=== PATIENT | female | born 1990 | race American Indian/Alaskan Native ===

== ENCOUNTER 2017-02-15 20:09 | Emergency (ER) | payer SELFPAY ==
[2017-02-15 23:05] LABS: Bacteria,Urine 1+ /HPF (Negative); Bilirubin,Urine NEG (Negative); Blood,Urine MOD (Negative); Ketones,Urine NEG (Negative); Leukocyte Esterase,Urine MOD (Negative); Mucus,Urine FEW /HPF; Nitrite,Urine NEG (Negative); Urobilinogen,Urine < 2.0 mg/dL (<2.0)
--- NOTE | 2017-02-16 01:15 | Emergency Department Report ---
ED Female HPI - General Chief complaint: Urogenital-Female Stated complaint: BLOOD IN URINE Time Seen by Provider: 02/16/17 01:14 Source: patient Mode of arrival: Ambulatory Limitations: No Limitations - History of Present Illness Initial comments: Pt is a healthy 26 yr old female with no PMHx who presents to the ED with hematuria and increased urinary frequency for the past few days. Pt reports these are her usualy symptoms of UTI. Pt has been drinking water and taking cranberry supplements without relief. Otherwise no fevers, chills, WELDON, NVD, SOB , CP, abd pain, back pain, pelvic pain, pelvic discharge, h/o STD, travel, or sick contacts - Related Data Previous Rx's Medication Instructions Recorded Last Taken Type Cefdinir 300 mg PO BID #14 capsule 02/16/17 Unknown Rx Allergies Allergy/AdvReac Type Severity Reaction Status Date / Time No Known Allergies Allergy Verified 02/15/17 21:34 ED Review of Systems ROS: Stated complaint: BLOOD IN URINE Other details as noted in HPI Comment: All other systems reviewed and negative ED Past Medical Hx - Past Medical History Previous Medical History?: No - Surgical History Past Surgical History?: No - Social History Smoking Status: Current Every Day Smoker Substance Use Type: None - Medications Home Medications: Home Medications Medication Instructions Recorded Confirmed Last Taken Type Cefdinir 300 mg PO BID #14 capsule 02/16/17 Unknown Rx ED Physical Exam - General Limitations: No Limitations General appearance: alert, in no apparent distress - Head Head exam: Present: atraumatic, normocephalic - Eye Eye exam: Present: normal appearance - ENT ENT exam: Present: mucous membranes moist - Neck Neck exam: Present: normal inspection - Respiratory Respiratory exam: Present: normal lung sounds bilaterally. Absent: respiratory distress - Cardiovascular Cardiovascular Exam: Present: regular rate, normal rhythm. Absent: systolic murmur, diastolic murmur, rubs, gallop - GI/Abdominal GI/Abdominal exam: Present: soft, normal bowel sounds - Extremities Exam Extremities exam: Present: normal inspection - Back Exam Back exam: Present: normal inspection - Neurological Exam Neurological exam: Present: alert, oriented X3 - Psychiatric Psychiatric exam: Present: normal affect, normal mood - Skin Skin exam: Present: warm, dry, intact, normal color. Absent: rash ED Course Vital Signs 02/15/17 02/16/17 21:34 01:24 Temperature 98.4 F Pulse Rate 70 Respiratory 18 14 Rate Blood Pressure 117/79 O2 Sat by Pulse 100 99 Oximetry Critical care attestation.: If time is entered above; I have spent that time in minutes in the direct care of this critically ill patient, excluding procedure time. ED Disposition Clinical Impression: UTI (urinary tract infection) Disposition: DC-01 TO HOME OR SELFCARE Is pt being admited?: No Condition: Stable Instructions: Urinary Tract Infection in Women (ED) Prescriptions: Cefdinir 300 mg PO BID #14 capsule Referrals: PRIMARY CARE, [Primary Care Provider] - 3-5 Days
[2017-02-16 01:58] VITALS: BP 121/84
== END 2017-02-16 01:58 | disposition home or self-care (01) ==
LOC: ED 20:09
DX: N39.0 Urinary tract infection, site not specified (principal); F17.200 Nicotine dependence, unspecified, uncomplicated
CPT/HCPCS: 81001; 81025; 99283

== ENCOUNTER 2018-01-15 17:05 | Emergency (ER) | payer SELFPAY ==
[2018-01-15 18:21] LABS: Basophils # (Auto) 0.1 K/mm3 (0.0-0.1); Basophils % (Auto) 0.9 % (0.0-1.8); Eosinophils # (Auto) 0.5 K/mm3 (0.0-0.4); Eosinophils % (Auto) 4.2 % (0.0-4.3); Hematocrit 43.4 % (30.3-42.9); Hemoglobin 14.5 gm/dl (10.1-14.3); Lymphocytes # (Auto) 3.4 K/mm3 (1.2-5.4); Lymphocytes % (Auto) 29.7 % (13.4-35.0); Mean Corpuscular HGB Conc 33 % (30-34); Mean Corpuscular Hemoglobin 30 pg (28-32); Mean Corpuscular Volume 90 fl (79-97); Monocytes # (Auto) 0.8 K/mm3 (0.0-0.8); Monocytes % (Auto) 7.4 % (0.0-7.3); Platelet Count 228 K/mm3 (140-440); Red Blood Count 4.85 M/mm3 (3.65-5.03); Red Cell Distribution Width 12.6 % (13.2-15.2)
[2018-01-15 18:44] LABS: Bilirubin,Urine NEG (Negative); Blood,Urine LG (Negative); Calcium Oxalate Crystals,Urine 1+; Color,Urine Amber (Yellow); Mucus,Urine 3+ /HPF; Urobilinogen,Urine < 2.0 mg/dL (<2.0)
[2018-01-15 18:45] LABS: RBC,Urine > 182.0 /HPF (0.0-6.0)
--- NOTE | 2018-01-15 22:43 | Ultrasound Report ---
FINAL REPORT PROCEDURE: US OB TRANSVAGINAL and transabdominal TECHNIQUE: Real-time transabdominal and transvaginal sonography of the uterus, placenta, amniotic fluid, adnexa, and fetus was performed with image documentation. Measurements were obtained to determine age/size. M-mode Doppler was used to document heartbeat. CPT 70615 and 30193 HISTORY: vaginal bleed COMPARISON: No prior studies are available for comparison. FINDINGS: Uterus measures 10.1 x 5.0 x 5.0 centimeters. Endometrium measures 11.5 centimeters in thickness. There is a complex cystic area noted in the lower uterine segment/cervix, measuring up to 1.2 centimeters. Cervix: Normal. Right Ovary: 2.9 x 1.9 x 2.5 centimeters. There is a 1.5 centimeter cyst Left Ovary: 2.8 x 1.9 x 2.0 centimeters No free fluid is seen IMPRESSION: There is an indeterminate 1.2 centimeter complex cystic structure in the lower uterine segment/endocervical canal. This is of uncertain etiology, but gestational sac cannot be excluded. Recommend clinical and sonographic follow-up. Cannot fully exclude ectopic based on these images. Again, recommend follow-up.
--- NOTE | 2018-01-15 22:43 | Ultrasound Report ---
FINAL REPORT PROCEDURE: US OB TRANSVAGINAL and transabdominal TECHNIQUE: Real-time transabdominal and transvaginal sonography of the uterus, placenta, amniotic fluid, adnexa, and fetus was performed with image documentation. Measurements were obtained to determine age/size. M-mode Doppler was used to document heartbeat. CPT 45945 and 69263 HISTORY: vaginal bleed COMPARISON: No prior studies are available for comparison. FINDINGS: Uterus measures 10.1 x 5.0 x 5.0 centimeters. Endometrium measures 11.5 centimeters in thickness. There is a complex cystic area noted in the lower uterine segment/cervix, measuring up to 1.2 centimeters. Cervix: Normal. Right Ovary: 2.9 x 1.9 x 2.5 centimeters. There is a 1.5 centimeter cyst Left Ovary: 2.8 x 1.9 x 2.0 centimeters No free fluid is seen IMPRESSION: There is an indeterminate 1.2 centimeter complex cystic structure in the lower uterine segment/endocervical canal. This is of uncertain etiology, but gestational sac cannot be excluded. Recommend clinical and sonographic follow-up. Cannot fully exclude ectopic based on these images. Again, recommend follow-up. PROCEDURE: TECHNIQUE: HISTORY: COMPARISON: FINDINGS: IMPRESSION:
--- NOTE | 2018-01-16 00:33 | Emergency Department Report ---
HPI - General Chief Complaint: Vaginal Bleeding Time Seen by Provider: 01/16/18 00:18 - HPI HPI: 27-year-old female presents to the emergency department with concern that she may have had a miscarriage. The patient did not take any tests but says that she was about 6 weeks late from having a menstrual cycle. Starting yesterday and last night the patient had very heavy vaginal bleeding "as if someone turned on a faucet." This was associated with very bad pelvic cramping. The bleeding has improved greatly but she still has some cramping. She denies any dysuria, vaginal discharge, fever, nausea or vomiting. With this she would be . She has not taken anything for her symptoms prior to presentation. She does not have an [facility]. ED Past Medical Hx - Past Medical History Previous Medical History?: No - Surgical History Past Surgical History?: No - Social History Smoking Status: Current Every Day Smoker Substance Use Type: Alcohol - Medications Home Medications: Home Medications Medication Instructions Recorded Confirmed Last Taken Type Cefdinir 300 mg PO BID #14 capsule 02/16/17 Unknown Rx Nitrofurantoin Monohyd/M-Cryst 100 mg PO BID #14 capsule 01/16/18 Unknown Rx [Macrobid 100 mg Capsule] Vit Calc,Iron,Folic 1 each PO QDAY #30 tablet 01/16/18 Unknown Rx [ Vitamins] ED Review of Systems ROS: Stated complaint: POSSIBLE MISCARRIAGE Other details as noted in HPI Comment: All other systems reviewed and negative Constitutional: denies: chills, fever Eyes: denies: eye pain, eye discharge, vision change ENT: denies: ear pain, throat pain Respiratory: denies: cough, shortness of breath, wheezing Cardiovascular: denies: chest pain, palpitations Gastrointestinal: denies: nausea, vomiting Genitourinary: other (vaginal bleeding, pelvic cramping). denies: dysuria, discharge Musculoskeletal: denies: back pain, joint swelling, arthralgia Skin: denies: rash, lesions Neurological: denies: headache, weakness, paresthesias Physical Exam - Physical Exam Vital Signs: Vital Signs 01/15/18 17:09 Temperature 98.5 F Pulse Rate 90 Respiratory 18 Rate Blood Pressure 131/74 O2 Sat by Pulse 98 Oximetry Physical Exam: GENERAL: The patient is well-developed well-nourished. HENT: Normocephalic. Atraumatic. Patient has moist mucous membranes. EYES: Extraocular motions are intact. Pupils equal reactive to light bilaterally. NECK: Supple. Trachea is midline. CHEST/LUNGS: Clear to auscultation. There is no respiratory distress noted. HEART/CARDIOVASCULAR: Regular. There is no tachycardia. There is no murmur. ABDOMEN: Abdomen is soft, nontender. Patient has normal bowel sounds. There is no abdominal distention. SKIN: Skin is warm and dry. NEURO: The patient is awake, alert, and oriented. The patient is cooperative. The patient has no focal neurologic deficits. The patient has normal speech. MUSCULOSKELETAL: There is no tenderness or deformity. There is no limitation range of motion. There is no evidence of acute injury. ED Course Vital Signs 01/15/18 17:09 Temperature 98.5 F Pulse Rate 90 Respiratory 18 Rate Blood Pressure 131/74 O2 Sat by Pulse 98 Oximetry - Pulse Oximetry Interpretation Digit-Finger Initial Pulse Oximetry Readin O2 Sat by Pulse Oximetry: 98 Actions Taken: none Additional Comments: Normal ED Medical Decision Making - Lab Data Result diagrams: 01/15/18 17:48 - Radiology Data Radiology results: report reviewed Transvaginal/OB ultrasound shows an indeterminate 1.2 cm complex cystic structure in the lower uterine segment/endocervical canal. This is of uncertain etiology but gestational sac cannot be excluded. - Medical Decision Making This patient is about 6 weeks late from her menstrual cycle and now presents with some recent heavy vaginal bleeding and pelvic cramping with concern for miscarriage. Her beta hCG today is about 1200. Vital signs stable. She has a stable hemoglobin. The ultrasound shows a indeterminate 1.2 cm cystic structure in the lower uterine/endocervical region. This very well could represent a miscarriage, however a early and early gestational sac cannot be excluded at this time. For this reason, the patient will return to the emergency department or an [facility] services in 2-3 days for a repeat hormone level. If the hormone level is increasing, the patient will have a repeat ultrasound. If decreasing, this most likely was a miscarriage. In the meantime the patient will be placed on vitamins. She also has a very mild urinary tract infection with 12 WBCs and trace leukocyte Estrace and was prescribed an antibiotic. All this was discussed with the patient and her significant other and she will return to the ER with any worsening of her symptoms or any acute distress. - Differential Diagnosis , threatened miscarriage, spontaneous miscarriage, fibroids Critical Care Time: No Critical care attestation.: If time is entered above; I have spent that time in minutes in the direct care of this critically ill patient, excluding procedure time. ED Disposition Clinical Impression: Threatened miscarriage UTI (urinary tract infection) Qualifiers: Urinary tract infection type: acute cystitis Hematuria presence: with hematuria Qualified Code(s): N30.01 - Acute cystitis with hematuria Disposition: TO HOME OR SELFCARE Is pt being admited?: No Condition: Stable Instructions: Threatened Miscarriage (ED) Additional Instructions: Please return to the emergency department, or an [facility], in 2-3 days for a repeat hormone level called a beta hCG. If this hormone level is increasing, then you may get a repeat ultrasound to see if there is any development of within the uterus. If this hormone level is decreasing , then you most likely had a miscarriage. In the meantime, I have started you on vitamins. Return to the emergency Department sooner with any worsening of her symptoms, increased vaginal bleeding, or with any acute distress. Prescriptions: Nitrofurantoin Monohyd/M-Cryst [Macrobid 100 mg Capsule] 100 mg PO BID #14 capsule Vit Calc,Iron,Folic [ Vitamins] 1 each PO QDAY #30 tablet Referrals: [facility] [Provider Group] - 2-3 Days [facility] [Provider Group] - 2-3 Days [facility] [Provider Group] - 2-3 Days Time of Disposition: 00:33
[2018-01-16 00:44] VITALS: BP 126/84
== END 2018-01-16 01:01 | disposition home or self-care (01) ==
LOC: ED 17:05
DX: O23.41 Unspecified infection of urinary tract in pregnancy, first trimester (principal); O20.0 Threatened abortion; F17.200 Nicotine dependence, unspecified, uncomplicated; Z3A.01 Less than 8 weeks gestation of pregnancy
CPT/HCPCS: 36415; 76801; 76817; 81001; 84702; 85025; 86850; 86900; 86901; 99284

== ENCOUNTER 2019-01-31 23:59 | Emergency (ER) | payer MEDICAID, OTHER ==
[2019-02-01 01:27] LABS: Bilirubin,Urine NEG (Negative); Blood,Urine NEG (Negative); Color,Urine Yellow (Yellow); HCG Qualitative,Urine Positive (Negative); Mucus,Urine 1+ /HPF; Protein,Urine <15 mg/dL mg/dL (Negative)
--- NOTE | 2019-02-01 03:48 | Ultrasound Report ---
PROCEDURE: US OB <= 14 WEEKS FETUS TECHNIQUE: Real-time transabdominal sonography of the uterus, placenta, amniotic fluid, adnexa, and fetus was performed with image documentation. Measurements were obtained to determine age/size. M-mode Doppler was used to document heartbeat. ADDITIONAL GESTATION: None. HISTORY: preg with abd pain/bleeding COMPARISONS: None . FINDINGS: No evidence of intrauterine gestation is identified. Endometrium is thickened at 21 mm. There is no e ndometrial fluid. The ovaries are unremarkable. There is no free fluid. IMPRESSION: No evidence of intrauterine gestation is identified. Endometrium is thickened at 21 mm. There is no e ndometrial fluid. The ovaries are unremarkable. There is no free fluid. This document is electronically signed by Stone Lucas MD., February 01 2019 03:45:52 AM ET
--- NOTE | 2019-02-01 04:11 | Emergency Department Report ---
ED Female HPI - General Chief complaint: Vaginal Bleeding Stated complaint: /SPOTTING Time Seen by Provider: 02/01/19 01:50 Source: patient Mode of arrival: Ambulatory Limitations: No Limitations - History of Present Illness Initial comments: Patient is a 28-year-old female whose last menstrual period was 12/27/2018 who is presented with some very mild vaginal spotting. Patient took a test earlier today which was positive. The patient wiped last time she went to the bathroom she's noted that there was pink tinge to her urine. Patient is denying any abdominal pain at this time. - Related Data Previous Rx's Medication Instructions Recorded Last Taken Type Cefdinir 300 mg PO BID #14 capsule 02/16/17 Unknown Rx Nitrofurantoin Monohyd/M-Cryst 100 mg PO BID #14 capsule 01/16/18 Unknown Rx [Macrobid 100 mg Capsule] Vit Calc,Iron,Folic 1 each PO QDAY #30 tablet 01/16/18 Unknown Rx [ Vitamins] Allergies Allergy/AdvReac Type Severity Reaction Status Date / Time No Known Allergies Allergy Verified 01/15/18 17:09 ED Review of Systems ROS: Stated complaint: /SPOTTING Other details as noted in HPI Comment: All other systems reviewed and negative ED Past Medical Hx - Past Medical History Previous Medical History?: No - Surgical History Past Surgical History?: No - Social History Smoking Status: Current Every Day Smoker Substance Use Type: None - Medications Home Medications: Home Medications Medication Instructions Recorded Confirmed Last Taken Type Cefdinir 300 mg PO BID #14 capsule 02/16/17 Unknown Rx Nitrofurantoin Monohyd/M-Cryst 100 mg PO BID #14 capsule 01/16/18 Unknown Rx [Macrobid 100 mg Capsule] Vit Calc,Iron,Folic 1 each PO QDAY #30 tablet 01/16/18 Unknown Rx [ Vitamins] ED Physical Exam - General Limitations: No Limitations General appearance: alert, in no apparent distress - Head Head exam: Present: atraumatic, normocephalic - Eye Eye exam: Present: normal appearance - ENT ENT exam: Present: mucous membranes moist - Neck Neck exam: Present: normal inspection - Respiratory Respiratory exam: Present: normal lung sounds bilaterally. Absent: respiratory distress, wheezes, rales - Cardiovascular Cardiovascular Exam: Present: regular rate, normal rhythm. Absent: systolic murmur, diastolic murmur, rubs, gallop - GI/Abdominal GI/Abdominal exam: Present: soft, normal bowel sounds. Absent: distended, tenderness, guarding, rebound - Extremities Exam Extremities exam: Present: normal inspection - Back Exam Back exam: Present: normal inspection - Neurological Exam Neurological exam: Present: alert, oriented X3 - Psychiatric Psychiatric exam: Present: normal affect, normal mood - Skin Skin exam: Present: warm, dry, intact, normal color. Absent: rash ED Course Vital Signs 02/01/19 00:29 Temperature 97.8 F Pulse Rate 87 Respiratory 18 Rate Blood Pressure 120/70 [Right] O2 Sat by Pulse 98 Oximetry ED Medical Decision Making - Lab Data Lab Results 02/01/19 02/01/19 Range/Units 01:10 03:26 HCG, Quant 95.45 H (0-4) mIU/mL Urine Color Yellow (Yellow) Urine Turbidity Slightly-cloudy (Clear) Urine pH 5.0 (5.0-7.0) Ur Specific [place] 1.029 (1.003-1.030) Urine Protein <15 mg/dl (Negative) mg/dL Urine Glucose (UA) Neg (Negative) mg/dL Urine Ketones Tr (Negative) mg/dL Urine Blood Neg (Negative) Urine Nitrite Neg (Negative) Urine Bilirubin Neg (Negative) Urine Urobilinogen 2.0 (<2.0) mg/dL Ur Leukocyte Esterase Neg (Negative) Urine WBC (Auto) 2.0 (0.0-6.0) /HPF Urine RBC (Auto) 2.0 (0.0-6.0) /HPF U Epithel Cells (Auto) 4.0 (0-13.0) /HPF Urine Mucus 1+ /HPF Urine HCG, Qual Positive A (Negative) - Medical Decision Making Patient is a 28-year-old [place] female who states that she has some pink tinged spotting and just found out she was . Quantitative and ultrasound are consistent with very early . Patient will be discharged home with follow-up in 1-2 weeks. Critical care attestation.: If time is entered above; I have spent that time in minutes in the direct care of this critically ill patient, excluding procedure time. ED Disposition Clinical Impression: First trimester bleeding Qualifiers: Weeks of gestation: less than 8 weeks Qualified Code(s): Z3A.01 - Less than 8 weeks gestation of Disposition: DC-01 TO HOME OR SELFCARE Is pt being admited?: No Does the pt Need Aspirin: No Condition: Stable Instructions: (ED) Referrals: MAKI LAI MD [Staff Physician] - 3-5 Days Time of Disposition: 04:10
[2019-02-01 04:26] VITALS: BP 126/87
--- NOTE | 2019-02-01 04:34 | Ultrasound Report ---
PROCEDURE: US OB TRANSVAGINAL TECHNIQUE: Real-time transvaginal sonography of the uterus, placenta, amniotic fluid, adnexa, and fe tus was performed with image documentation. Measurements were obtained to determine age/size. M -mode Doppler was used to document heartbeat. ADDITIONAL GESTATION: None. HISTORY: preg with abd pain/bleeding COMPARISONS: None . FINDINGS: No evidence of intrauterine gestation is identified. Endometrium is thickened at 21 mm. There is no e ndometrial fluid. The ovaries are unremarkable. There is no free fluid. IMPRESSION: No evidence of intrauterine gestation is identified. Endometrium is thickened at 21 mm. There is no e ndometrial fluid. The ovaries are unremarkable. There is no free fluid. This document is electronically signed by Stone Lucas MD., February 01 2019 04:32:22 AM ET
== END 2019-02-01 04:26 | disposition home or self-care (01) ==
LOC: ED 23:59
DX: O20.8 Other hemorrhage in early pregnancy (principal); Z3A.01 Less than 8 weeks gestation of pregnancy; Z79.899 Other long term (current) drug therapy
CPT/HCPCS: 36415; 76801; 76817; 81001; 81025; 84702; 86900; 86901

== ENCOUNTER 2019-02-08 12:29 | Emergency (ER) | payer MEDICAID, OTHER ==
[2019-02-08 12:39] VITALS: BP 114/66
--- NOTE | 2019-02-08 12:42 | Emergency Department Report ---
Blank Doc - Documentation Documentation: 28 y/o female reports to ED and is 6 weeks c/o of vaginal bleeding. c/o of visual changes, fatigue and aches. Does not want a blood transfusion if that is what the test show that she needs. Plan Labs, urine, US
--- NOTE | 2019-02-08 13:32 | Emergency Department Report ---
ED HPI - General Chief complaint: Vaginal Bleeding Stated complaint: /VAGINAL BLEEDING Time Seen by Provider: 02/08/19 12:37 Source: patient Mode of arrival: Ambulatory Limitations: No Limitations - History of Present Illness Initial comments: Patient is a 28-year-old female who presents the emergency room with complaints of vaginal bleeding that began yesterday. She states she saw bright red blood when she wiped yesterday. She states now she is just only having spotting. She denies any abdominal pain. She denies any urinary symptoms, vaginal discharge. She states she has her first appointment with her COMPENSATION AND BENEFITS ANALYST on March 10. She states she is currently 6 weeks . Her last normal menstrual period was December 27. She denies any past medical history. No allergies medications. She states she is taking a daily vitamin. /P:0/A:1 - Related Data Previous Rx's Medication Instructions Recorded Last Taken Type Cefdinir 300 mg PO BID #14 capsule 02/16/17 Unknown Rx Nitrofurantoin Monohyd/M-Cryst 100 mg PO BID #14 capsule 01/16/18 Unknown Rx [Macrobid 100 mg Capsule] Vit Calc,Iron,Folic 1 each PO QDAY #30 tablet 01/16/18 Unknown Rx [ Vitamins] Allergies Allergy/AdvReac Type Severity Reaction Status Date / Time No Known Allergies Allergy Verified 02/08/19 12:30 ED Review of Systems ROS: Stated complaint: /VAGINAL BLEEDING Other details as noted in HPI Comment: All other systems reviewed and negative ED Past Medical Hx - Past Medical History Previous Medical History?: No - Surgical History Past Surgical History?: No - Social History Smoking Status: Current Every Day Smoker Substance Use Type: Other - Medications Home Medications: Home Medications Medication Instructions Recorded Confirmed Last Taken Type Cefdinir 300 mg PO BID #14 capsule 02/16/17 Unknown Rx Nitrofurantoin Monohyd/M-Cryst 100 mg PO BID #14 capsule 01/16/18 Unknown Rx [Macrobid 100 mg Capsule] Vit Calc,Iron,Folic 1 each PO QDAY #30 tablet 01/16/18 Unknown Rx [ Vitamins] ED Physical Exam - General Limitations: No Limitations General appearance: alert, in no apparent distress - Head Head exam: Present: atraumatic, normocephalic - Eye Eye exam: Present: normal appearance, PERRL - ENT ENT exam: Present: mucous membranes moist - Respiratory Respiratory exam: Present: normal lung sounds bilaterally. Absent: respiratory distress, wheezes, rales, rhonchi, stridor, chest wall tenderness, accessory muscle use, decreased breath sounds, prolonged expiratory - Cardiovascular Cardiovascular Exam: Present: regular rate, normal rhythm, normal heart sounds. Absent: systolic murmur, diastolic murmur, rubs, gallop - GI/Abdominal GI/Abdominal exam: Present: soft, normal bowel sounds, other (gravid). Absent: tenderness, guarding, rebound, rigid - Back Exam Back exam: Absent: CVA tenderness (R), CVA tenderness (L) - Neurological Exam Neurological exam: Present: alert, oriented X3 - Psychiatric Psychiatric exam: Present: normal affect, normal mood - Skin Skin exam: Present: warm, dry, intact ED Course Vital Signs 02/08/19 12:36 Temperature 98.2 F Pulse Rate 80 Respiratory 18 Rate Blood Pressure 114/66 O2 Sat by Pulse 98 Oximetry - Consultations Consultation #1: 02/08/19 16:[address] Hernández, COMPENSATION AND BENEFITS ANALYST who states very unlikely ectopic and that it is most likely an blighted ovum. advised to have pt have repeat quant in 2 days and follow up with COMPENSATION AND BENEFITS ANALYST in clinic. ED Medical Decision Making - Lab Data Result diagrams: 02/08/19 13:03 02/08/19 13:03 Lab Results 02/08/19 02/08/19 02/08/19 Range/Units 13:03 13:03 13:03 WBC 10.3 (4.5-11.0) K/mm3 RBC 4.45 (3.65-5.03) M/mm3 Hgb 14.1 (10.1-14.3) gm/dl Hct 40.9 (30.3-42.9) % MCV 92 (79-97) fl MCH 32 (28-32) pg MCHC 35 H (30-34) % RDW 13.2 (13.2-15.2) % Plt Count 222 (140-440) K/mm3 Lymph % (Auto) 31.3 (13.4-35.0) % [place] % (Auto) 7.6 H (0.0-7.3) % Eos % (Auto) 2.6 (0.0-4.3) % Baso % (Auto) 1.0 (0.0-1.8) % Lymph # 3.2 (1.2-5.4) K/mm3 [place] # 0.8 (0.0-0.8) K/mm3 Eos # 0.3 (0.0-0.4) K/mm3 Baso # 0.1 (0.0-0.1) K/mm3 Seg Neutrophils % 57.5 (40.0-70.0) % Seg Neutrophils # 5.9 (1.8-7.7) K/mm3 Sodium 136 L (137-145) mmol/L Potassium 3.8 (3.6-5.0) mmol/L Chloride 102.6 (98-107) mmol/L Carbon Dioxide 21 L (22-30) mmol/L Anion Gap 16 mmol/L BUN 9 (7-17) mg/dL Creatinine 0.8 (0.7-1.2) mg/dL Estimated GFR > 60 ml/min BUN/Creatinine Ratio 11 % Glucose 92 (65-100) mg/dL Calcium 8.9 (8.4-10.2) mg/dL HCG, Quant 205.2 H (0-4) mIU/mL Urine Color (Yellow) Urine Turbidity (Clear) Urine pH (5.0-7.0) Ur Specific [place] (1.003-1.030) Urine Protein (Negative) mg/dL Urine Glucose (UA) (Negative) mg/dL Urine Ketones (Negative) mg/dL Urine Blood (Negative) Urine Nitrite (Negative) Urine Bilirubin (Negative) Urine Urobilinogen (<2.0) mg/dL Ur Leukocyte Esterase (Negative) Urine WBC (Auto) (0.0-6.0) /HPF Urine RBC (Auto) (0.0-6.0) /HPF U Epithel Cells (Auto) (0-13.0) /HPF 02/08/19 Range/Units 13:09 WBC (4.5-11.0) K/mm3 RBC (3.65-5.03) M/mm3 Hgb (10.1-14.3) gm/dl Hct (30.3-42.9) % MCV (79-97) fl MCH (28-32) pg MCHC (30-34) % RDW (13.2-15.2) % Plt Count (140-440) K/mm3 Lymph % (Auto) (13.4-35.0) % [place] % (Auto) (0.0-7.3) % Eos % (Auto) (0.0-4.3) % Baso % (Auto) (0.0-1.8) % Lymph # (1.2-5.4) K/mm3 [place] # (0.0-0.8) K/mm3 Eos # (0.0-0.4) K/mm3 Baso # (0.0-0.1) K/mm3 Seg Neutrophils % (40.0-70.0) % Seg Neutrophils # (1.8-7.7) K/mm3 Sodium (137-145) mmol/L Potassium (3.6-5.0) mmol/L Chloride (98-107) mmol/L Carbon Dioxide (22-30) mmol/L Anion Gap mmol/L BUN (7-17) mg/dL Creatinine (0.7-1.2) mg/dL Estimated GFR ml/min BUN/Creatinine Ratio % Glucose (65-100) mg/dL Calcium (8.4-10.2) mg/dL HCG, Quant (0-4) mIU/mL Urine Color Yellow (Yellow) Urine Turbidity Slightly-cloudy (Clear) Urine pH 6.0 (5.0-7.0) Ur Specific [place] 1.008 (1.003-1.030) Urine Protein <15 mg/dl (Negative) mg/dL Urine Glucose (UA) Neg (Negative) mg/dL Urine Ketones Neg (Negative) mg/dL Urine Blood Sm (Negative) Urine Nitrite Neg (Negative) Urine Bilirubin Neg (Negative) Urine Urobilinogen < 2.0 (<2.0) mg/dL Ur Leukocyte Esterase Neg (Negative) Urine WBC (Auto) < 1.0 (0.0-6.0) /HPF Urine RBC (Auto) 2.0 (0.0-6.0) /HPF U Epithel Cells (Auto) 1.0 (0-13.0) /HPF - Radiology Data Radiology results: report reviewed PROCEDURE: US OB <= 14 WEEKS FETUS, US OB TRANSVAGINAL TECHNIQUE: Transabdominal and transvaginal obstetric imaging of the pelvis was performed. HISTORY: Vaginal bleeding pain COMPARISONS: Obstetric ultrasound performed on 02/01/2019 FINDINGS: The uterus measures 10 x 4.8 x 5.5 cm and is anteverted. There is a heterogeneous 1.8 x 1.5 cm structure that appears to be within the myometrium of the posterior uterus, external to and posterior to the endometrium, that is not well visualized on the transverse images. The endometrium measures 8.1 mm in thickness. An intrauterine is not visualized. The right ovary measures 3.3 x 2.1 x 2.9 cm and is normal in morphology. The left ovary measures 2.6 x 2.1 x 2.5 cm and is normal in morphology. IMPRESSION: Intrauterine is not visualized. Heterogeneous 1.8 x 1.5 cm structure within the posterior uterus, only seen on the sagittal images. Findings may represent a fibroid versus less likely a poorly defined and ectopic gestational sac. Recommend serial beta hCG measurements and ultrasound follow-up as clinically indicated. This document is electronically signed by Mely Quiroga MD., February 08 2019 03:59:09 PM ET Transcribed By: LAYLA Dictated By: MELY QUIROGA MD Electronically Authenticated By: MELY QUIROGA MD Signed Date/Time: 02/08/19 1601 - Medical Decision Making Patient is a 28-year-old female who presents the emergency room with complaints of vaginal bleeding that began yesterday. She states she saw bright red blood when she wiped yesterday. She states now she is just only having spotting. She denies any abdominal pain. She denies any urinary symptoms, vaginal discharge. She states she has her first appointment with her COMPENSATION AND BENEFITS ANALYST on March 10. She states she is currently 6 weeks . Her last normal menstrual period was December 27. She denies any past medical history. No allergies medications. She states she is taking a daily vitamin. /P:0/A:1. UA is normal. labs WNL. hcg quant is 205. US shows Heterogeneous 1.8 x 1.5 cm structure within the posterior uterus, only seen on the sagittal images.Findings may represent a fibroid versus less likely a poorly defined and ectopic gestational sac. Recommend serial beta hCG measurements and ultrasound follow-up as clinically indicated. consulted Dr. Hernández, COMPENSATION AND BENEFITS ANALYST who states very unlikely ectopic and that it is most likely an blighted ovum. advised to have pt have repeat quant in 2 days and follow up with COMPENSATION AND BENEFITS ANALYST in clinic. return to the emergency room for any new or worsening symptoms. Critical care attestation.: If time is entered above; I have spent that time in minutes in the direct care of this critically ill patient, excluding procedure time. ED Disposition Clinical Impression: Vaginal bleeding Disposition: DC-01 TO HOME OR SELFCARE Is pt being admited?: No Does the pt Need Aspirin: No Condition: Stable Instructions: Menorrhagia (ED) Additional Instructions: Please follow up with a COMPENSATION AND BENEFITS ANALYST in the next 2-3 days. will need to have repeat hcg quant in the next 2 days. return to the emergency room for any new or worsening symptoms. Referrals: AMBERLY EVANS MD [Primary Care Provider] - 2-3 Days LUIS HAMPTON DO [Staff Physician] - 2-3 Days Time of Disposition: 16:35 Print Language: ESTONIAN
[2019-02-08 13:38] LABS: Basophils # (Auto) 0.1 K/mm3 (0.0-0.1); Eosinophils # (Auto) 0.3 K/mm3 (0.0-0.4); Eosinophils % (Auto) 2.6 % (0.0-4.3); Hematocrit 40.9 % (30.3-42.9); Hemoglobin 14.1 gm/dl (10.1-14.3); Lymphocytes # (Auto) 3.2 K/mm3 (1.2-5.4); Lymphocytes % (Auto) 31.3 % (13.4-35.0); Mean Corpuscular HGB Conc 35 % (30-34); Mean Corpuscular Volume 92 fl (79-97); Monocytes # (Auto) 0.8 K/mm3 (0.0-0.8); Monocytes % (Auto) 7.6 % (0.0-7.3); Platelet Count 222 K/mm3 (140-440); Red Blood Count 4.45 M/mm3 (3.65-5.03); Red Cell Distribution Width 13.2 % (13.2-15.2)
[2019-02-08 13:43] LABS: Bilirubin,Urine NEG (Negative); Blood,Urine SM (Negative); Color,Urine Yellow (Yellow); Protein,Urine <15 mg/dL mg/dL (Negative); Urobilinogen,Urine < 2.0 mg/dL (<2.0); WBC,Urine < 1.0 /HPF (0.0-6.0)
[2019-02-08 13:57] LABS: BUN/Creatinine Ratio 11; Blood Urea Nitrogen 9 mg/dL (7-17); Calcium 8.9 mg/dL (8.4-10.2); Hemolysis Index 13
--- NOTE | 2019-02-08 16:01 | Ultrasound Report ---
PROCEDURE: US OB <= 14 WEEKS FETUS, US OB TRANSVAGINAL TECHNIQUE: Transabdominal and transvaginal obstetric imaging of the pelvis was performed. HISTORY: Vaginal bleeding pain COMPARISONS: Obstetric ultrasound performed on 02/01/2019 FINDINGS: The uterus measures 10 x 4.8 x 5.5 cm and is anteverted. There is a heterogeneous 1.8 x 1.5 cm struct ure that appears to be within the myometrium of the posterior uterus, external to and posterior to th e endometrium, that is not well visualized on the transverse images. The endometrium measures 8.1 mm in thickness. An intrauterine is not visualized. The right ovary measures 3.3 x 2.1 x 2.9 cm and is normal in morphology. The left ovary measures 2.6 x 2.1 x 2.5 cm and is normal in morphology. IMPRESSION: Intrauterine is not visualized. Heterogeneous 1.8 x 1.5 cm structure within the posterior uterus, only seen on the sagittal images. F indings may represent a fibroid versus less likely a poorly defined and ectopic gestational sac. Manolo mmend serial beta hCG measurements and ultrasound follow-up as clinically indicated. This document is electronically signed by Mely Merino MD., February 08 2019 03:59:09 PM ET
== END 2019-02-08 16:51 | disposition home or self-care (01) ==
LOC: ED 12:29
DX: O20.8 Other hemorrhage in early pregnancy (principal); Z3A.01 Less than 8 weeks gestation of pregnancy
CPT/HCPCS: 36415; 76801; 76817; 80048; 81001; 84702; 85025